=== PATIENT | male | born 1945 | race Caucasian/White ===

== ENCOUNTER 2017-08-10 08:00 | Observation (INO) ==
[2017-08-10 08:41] VITALS: BMI 32.1
[2017-08-10] MEDS ORDERED: FLECAINIDE 100 MG TABLET PO SCH (09:13)
--- NOTE | 2017-08-10 09:18 | Cardiology History & Physical ---
History of Present Illness Chief complaint: palpitations HPI: Darshan is a 72 year old male who is known to Dr. Pastrana with a history of HTN, HLD and DM II who was seen in the office for a low heart rate. Ekg done at that time showed SR with frequent PVCs. Holter monitor is ordered for future visit and he is admitted to observation at [facility] for antiarrhythmic therapy on Flecainide Review of Systems - Constitutional Constitutional: Absent: chills, fatigue, fever(s) - EENMT Eyes: Absent: change in vision Balance: Absent: vertigo Mouth/Throat: Absent: sore throat - Cardiovascular Cardiovascular: Present: palpitations, heart murmur. Absent: chest pain, syncope, dyspnea on exertion, orthopnea, edema Rhythm: Absent: abnormal rhythm Vascular: Absent: pedal edema - Respiratory Respiratory: Absent: cough, dyspnea, dyspnea on exertion - Gastrointestinal Gastrointestinal: Absent: abdominal pain, diarrhea, nausea, vomiting - Genitourinary Genitourinary: Absent: dysuria - Integumentary/Breasts Integumentary: Absent: rash - Neurological Neurological: Absent: dizziness - Endocrine Endocrine: Absent: palpitations PFSH Patient Stated Medical History Migraine Yes Diabetes Mellitus Type 2 Yes: pre-diabetic Surgical History: Colonoscopy Family History: Mother - CABG - Social History Smoking status: Former smoker Substance use type: does not use Alcohol intake frequency: does not drink Household members: spouse Current occupational status: retired Current residence: Apartment/Private Home Medications Home Medications Medication Instructions Recorded Confirmed Type Ibuprofen 200 mg PO PRN PRN #0 10/12/10 08/10/17 History Acetaminophen [Tylenol] 1 - 2 tab PO Q5H 08/10/17 08/10/17 History Atorvastatin Calcium 80 mg PO DAILY 08/10/17 08/10/17 History Losartan [Cozaar] 100 mg PO DAILY 08/10/17 08/10/17 History Metformin [Glucophage] 500 mg PO DAILY 08/10/17 08/10/17 History Amlodipine [Norvasc] 5 mg PO DAILY #30 tab 08/11/17 Rx Flecainide [Tambocor] 50 mg PO BID #60 tab 08/11/17 Rx Allergies Allergy/AdvReac Type Severity Reaction Status Date / Time No Known Allergies Allergy Verified 08/10/17 16:07 Exam Vital signs: Temperature 97.3 F 08/10/17 08:22 Pulse Rate 38 L 08/10/17 08:22 Respiratory Rate 16 08/10/17 08:22 Blood Pressure 185/79 H 08/10/17 08:22 Pulse Oximetry 96 08/10/17 08:22 - Constitutional no acute distress, well nourished, cooperative - Routine HEENT Exam Head: Present: normocephalic ENT: Present: mucous membranes moist - Routine Neck Exam Absent: JVD, carotid bruit - Routine Chest/Breast/Axilla Exam Chest wall: Absent: tenderness - Routine Respiratory Exam Present: CTA bilaterally. Absent: rales, wheezes - Routine Cardiovascular Exam Present: murmur (II/), irregular rhythm - Routine Abdominal Exam Present: soft, non tender - Routine Extremities Exam Present: no edema, pulses intact - Routine Skin Exam Present: intact, dry, warm - Routine Neurological Exam Present: alert, oriented X3 - Routine Psychiatric Exam Present: normal affect, normal thought process Results 08/10/17 08:52 08/11/17 04:10 CBC 08/10/17 Range/Units 08:52 WBC 6.8 (4.5-11.0) T/MM3 RBC 4.82 (4.50-5.90) M/MM3 Hgb 14.3 (13.5-17.5) GM/DL Hct 43.3 (41-53) % Plt Count 194 (130-400) T/MM3 Neut # (Auto) 4.5 (1.8-7.7) T/MM3 Lymph # (Auto) 1.7 (1-4.8) T/MM3 [place] # (Auto) 0.4 (0-0.8) T/MM3 Eos # (Auto) 0.3 (0-0.5) T/MM3 Baso # (Auto) 0.0 (0-0.2) T/MM3 Intake and Output 08/09/17 08/10/17 08/10/17 22:59 06:59 14:59 Other: Weight 236 lb 15.951 oz Patient Weight 08/11/17 06:59 Weight 236 lb 15.951 oz EKG interpretations - Dysrhythmias Sinus rhythms and dysrhythmias: sinus rhythm Ventricular dysrhythmias: ventricular premature complexes (frequent) Hospital Course This is a general summary of the patient's hospital course. For more details refer to the complete medical record. Time spent with patient: 25 - 35 minutes Resuscitation Status: Full Code Assessment and Plan - Attestation Attestation Narrative: 08/15/17 14:34 Recommendation After examining the patient I agree with the above assessment. I am involved in the formulation of the patient's plan of care. - Assessment and Plan (1) Ventricular premature depolarization Status: Acute Admit to observation at [facility] for antiarrhythmic therapy on Flecainide 50mg BID. - Monitor cardiac telemetry for arrhythmias of immediate concern - Mag, TSH - EKG in Am (2) Essential (primary) hypertension Status: Chronic Continue current therapy, routine monitoring (3) Mixed hyperlipidemia Status: Chronic Takes Atorvastatin, PCP manages (4) Type 2 diabetes mellitus without complications Status: Chronic PCP manages
[2017-08-10] MEDS: FLECAINIDE 50 MG TABLET PO SCH ×2 (10:09→21:10)
[2017-08-10] MEDS ORDERED: IBUPROFEN 200 MG TABLET PO PRN (15:21)
[2017-08-10] MEDS: --POM--ACETAMINOPHEN 500 MG TABLET PO SCH ×2 (17:34→21:00)
[2017-08-10] MEDS: AMLODIPINE 5 MG TABLET PO SCH (17:34)
[2017-08-11] MEDS: --POM--ACETAMINOPHEN 500 MG TABLET PO SCH ×2 (01:30→09:28)
[2017-08-11 07:29] VITALS: BP 189/83; RESP 12; O2SAT 95
[2017-08-11] MEDS ORDERED: --POM--METFORMIN 500 MG TABLET PO SCH (08:00)
[2017-08-11 08:04] VITALS: TEMP 97.7
[2017-08-11] MEDS ORDERED: --POM--LOSARTAN 100 MG TABLET PO SCH (09:00)
[2017-08-11] MEDS ORDERED: --POM--ATORVASTATIN 40 MG TABLET PO SCH (09:00)
[2017-08-11] MEDS: FLECAINIDE 50 MG TABLET PO SCH (09:27)
[2017-08-11] MEDS: AMLODIPINE 5 MG TABLET PO SCH (09:27)
--- NOTE | 2017-08-11 09:32 | Discharge Summary ---
Discharge Information Date of admission: 08/10/17 08:06 Anticipated date of discharge: 08/11/17 Attending Physician: Cory Pastrana MD Primary care physician: Alison Cardenas MD - Discharge Diagnosis (1) Ventricular premature depolarization Status: Acute (2) Essential (primary) hypertension Status: Chronic (3) Mixed hyperlipidemia Status: Chronic (4) Type 2 diabetes mellitus without complications Status: Chronic frequent PVCs - Laboratory Labs: 08/10/17 08:52 08/11/17 04:10 History of Present Illness HPI: Darshan is a 72 year old male who is known to Dr. Pastrana with a history of HTN, HLD and DM II who was seen in the office for a low heart rate. Ekg done at that time showed SR with frequent PVCs. Holter monitor is ordered for future visit and he is admitted to observation at [facility] for antiarrhythmic therapy on Flecainide Hospital Course This is a general summary of the patient's hospital course. For more details refer to the complete medical record. Time spent with patient: 25 - 35 minutes Resuscitation Status: Full Code Exam Vital signs: Temperature 97.7 F 08/11/17 08:03 Pulse Rate 60 08/11/17 07:27 Respiratory Rate 12 08/11/17 07:27 Blood Pressure 189/83 H 08/11/17 07:27 Pulse Oximetry 95 08/11/17 07:27 - Constitutional no acute distress, well nourished, cooperative - Routine HEENT Exam Head: Present: normocephalic ENT: Present: mucous membranes moist - Routine Neck Exam Absent: JVD, carotid bruit - Routine Chest/Breast/Axilla Exam Chest wall: Absent: tenderness - Routine Respiratory Exam Present: CTA bilaterally. Absent: rales, wheezes - Routine Cardiovascular Exam Present: murmur (II/), bradycardia, irregular rhythm - Routine Abdominal Exam Present: soft, non tender - Routine Extremities Exam Present: no edema - Routine Skin Exam Present: intact, dry, warm - Routine Neurological Exam Present: alert, oriented X3 - Routine Psychiatric Exam Present: normal affect, normal thought process Results 08/10/17 08:52 08/11/17 04:10 Cardiac Enzymes 08/10/17 Range/Units 08:52 AST 42 (17-59) U/L Comprehensive Metabolic Panel 08/10/17 08/11/17 Range/Units 08:52 04:10 Sodium 146 H 144 (134-144) MEQ/L Potassium 4.0 4.3 (3.6-5) MEQ/L Chloride 108 H 106 (98-107) MEQ/L Carbon Dioxide 24 26 (22-30) MEQ/L BUN 24.0 H 18.0 (9-20) MG/DL Creatinine 0.9 0.8 (0.8-1.5) mg/dL Glucose 136 H 96 (75-110) MG/DL Calcium 9.5 9.1 (8.4-10.2) MG/DL AST 42 (17-59) U/L ALT 41 (1-50) U/L Alkaline Phosphatase 91 (38-126) U/L Total Protein 7.4 (6.3-8.2) g/dL Albumin 4.4 (3.5-5.0) g/dL Intake and Output 08/10/17 08/11/17 08/11/17 22:59 06:59 14:59 Intake Total 900 / 900 100 / 100 Balance 900 / 900 100 / 100 Intake: Oral 900 / 900 100 / 100 Other: # Voids 1 1 Weight 235 lb 7.259 oz Patient Weight 08/12/17 06:59 Weight 235 lb 7.259 oz - EKG Interpretation EKG: sinus rhythm (occasional PVCs, QTc 435) Discharge Plan - Med Rec/Dispo Referrals/Follow Up: Cory Pastrana MD [Physician] - 08/31/17 8:50 am Prescriptions: New Flecainide [Tambocor] 50 mg PO BID #60 tab Amlodipine [Norvasc] 5 mg PO DAILY #30 tab Continue Ibuprofen 200 mg PO PRN PRN #0 PRN Reason: Pain Atorvastatin Calcium 80 mg PO DAILY Losartan [Cozaar] 100 mg PO DAILY Metformin [Glucophage] 500 mg PO DAILY Acetaminophen [Tylenol] 1 - 2 tab PO Q5H - Disposition 01 Discharged Home, Self-Care - Dismissal Complete Discharge Instructions are:: Complete
[2017-08-11 12:41] VITALS: PULSE 54
== END 2017-08-11 13:00 | disposition home or self-care (01) ==
LOC: SRG
PROVIDERS: ADMIT Internal Medicine Cardiovascular Disease; ATTEND Internal Medicine Cardiovascular Disease